=== PATIENT | female | born 1950 | race Caucasian/White ===

== ENCOUNTER 2024-04-17 11:23 | Emergency (ER) | payer MEDICARE ==
[2024-04-17 12:29] LABS: BASOPHILS ABSOLUTE AUTO 0.01 10^3/uL (0.00-0.10); BASOPHILS PERCENT AUTO 0.1 % (0.0-1.0); HEMATOCRIT 42.9 % (37.0-47.0); HEMOGLOBIN 14.8 g/dL (12.0-16.0); IMMATURE GRAN ABSOLUTE AUTO 0.01 10^3/uL (0.00-0.50); IMMATURE GRAN PERCENT AUTO 0.1 % (0.0-5.0); LYMPHOCYTES ABSOLUTE AUTO 0.21 10^3/uL (1.00-4.00); LYMPHOCYTES PERCENT AUTO 3.1 % (20.0-40.0); MEAN CORPUSCULAR HEMOGLOBIN 30.6 pg (27.0-31.0); MEAN CORPUSCULAR HGB CONC 34.5 g/dL (32.0-36.0); MEAN CORPUSCULAR VOLUME 88.8 fL (82.0-92.0); MEAN PLATELET VOLUME 12.5 fL (7.4-10.4); MONOCYTES ABSOLUTE AUTO 0.45 10^3/uL (0.10-0.80); MONOCYTES PERCENT AUTO 6.6 % (2.0-8.0); NEUTROPHILS ABSOLUTE AUTO 6.16 10^3/uL (2.50-7.00); NEUTROPHILS PERCENT AUTO 90.1 % (50.0-70.0); PLATELET COUNT,PLT 123 10^3/uL (150-400); RED BLOOD CELL COUNT 4.83 10^6/uL (3.80-5.50); WHITE BLOOD CELL COUNT,WBC 6.84 10^3/uL (5.00-10.00)
[2024-04-17 12:41] LABS: ALBUMIN 3.25 g/dL (3.40-5.00); BILIRUBIN TOTAL 3.1 mg/dL (0.2-1.0); CALCIUM 9.1 mg/dL (8.7-10.3); CARBON DIOXIDE,CO2 27.5 mmol/L (21.0-32.0); CREATININE 0.61 mg/dL (0.51-1.17); EST CRCL DRUG DOSING (CG) 60.13 mL/min; POTASSIUM,K 3.5 mmol/L (3.5-5.1); PROTEIN TOTAL,TP 6.6 g/dL (6.4-8.2)
[2024-04-17 13:08] LABS: INFLUENZA A NAA NEGATIVE (NEGATIVE); INFLUENZA B NAA NEGATIVE (NEGATIVE); RESPIRATORY SYNCYTIAL VIR NAA NEGATIVE (NEGATIVE)
[2024-04-17 13:09] LABS: CORONAVIRUS COVID-19 NAA NEGATIVE (NEGATIVE)
[2024-04-17 14:13] LABS: AMYLASE 29 U/L (25-125); LIPASE 31 U/L (16-77)
[2024-04-17] MEDS: Iopamidol 755 Mg/ML 100 ML Bottle IV ONE (14:39)
[2024-04-17] MEDS: Sodium Chloride 0.9% 50 ML IV SCH (14:39)
[2024-04-17] MEDS: Ondansetron 4 MG/2 ML SDV IVPUSH ONE ×2 (16:00→16:30)
== END 2024-04-17 18:47 ==
LOC: MERGE 11:23 → KA.ED 11:23
DX: K80.20 Calculus of gallbladder without cholecystitis without obstruction (principal); K82.9 Disease of gallbladder, unspecified; R74.01 Elevation of levels of liver transaminase levels; Z88.6 Allergy status to analgesic agent; Z88.5 Allergy status to narcotic agent
CPT/HCPCS: 0241U; 36415; 74177; 80053; 82150; 83690; 84484; 85025; 96374; 99285-25; J2405; J3490; Q3014; Q9967